=== PATIENT | female | born 1955 | race Hispanic/Latino ===

== ENCOUNTER 2018-06-28 16:10 | Emergency (ER) | payer BC, SELFPAY ==
[2018-06-28 17:08] LABS: #Basophils 0.1 thou/uL (0.0-0.2); #Eosinphils 0.2 thou/uL (0.0-0.7); #Lymphocytes 2.8 thou/uL (1.20-3.40); #Monocytes 0.5 thou/uL (0.11-0.59); #Neutrophils 4.5 thou/uL (1.40-6.50); %Eosinophils 2.8 % (0.0-10.0); %Lymphocytes 34.7 % (21.0-51.0); %Monocytes 6.7 % (0.0-10.0); %Neutrophils 54.9 % (42.0-75.0); Hemoglobin 13.6 g/dL (12.0-16.0); Mean Corpuscular Hemoglobin 30.5 pg (27.0-31.0); Mean Corpuscular Volume 92.6 fL (78.0-98.0); Mean Platelet Volume 7.3 fL (7.4-10.4); Platelet Count 260 thou/uL (130-400); RBC Distribution Width 13.1 % (11.5-14.5); Red Blood Cell (RBC) Count 4.45 mill/uL (4.20-5.40); White Blood Cell (WBC) Count 8.1 thou/uL (4.8-10.8)
--- NOTE | 2018-06-28 17:08 | RAD ---
PA AND LATERAL CHEST: Date: 06/28/18 COMPARISON: 05/20/14 study. HISTORY: Cough. FINDINGS: Heart size is enlarged. No focal infiltrative process or signs of failure. Calcified mediastinal lymp h nodes are seen. IMPRESSION: Cardiomegaly. POS: [facility]
[2018-06-28 17:25] LABS: ALT (SGPT) 14 U/L (8-55); AST (SGOT) 16 U/L (5-34); Albumin 4.1 g/dL (3.4-4.8); Alkaline Phosphatase 176 U/L (40-150); Anion Gap 13 mmol/L (10-20); BUN (Urea Nitrogen) 18 mg/dL (9.8-20.1); Bilirubin, Total 0.4 mg/dL (0.2-1.2); Calc. Creatinine Clearance 0 mL/min (70-130); Carbon Dioxide 18 mmol/L (23-31); Chloride 111 mmol/L (98-107); Estimated GFR-MDRD 74; Globulin 3.2 g/dL (2.4-3.5); Glucose 147 mg/dL (80-115); Potassium 4.5 mmol/L (3.5-5.1); Protein, Total 7.3 g/dL (6.0-8.3); Sodium 137 mmol/L (136-145)
== END 2018-06-28 18:57 | disposition home or self-care (01) ==
LOC: ERS 16:10
DX: J39.9 Disease of upper respiratory tract, unspecified (principal); I25.10 Atherosclerotic heart disease of native coronary artery without angina pectoris; I11.0 Hypertensive heart disease with heart failure; I50.9 Heart failure, unspecified; F41.9 Anxiety disorder, unspecified; Z79.82 Long term (current) use of aspirin; Z79.899 Other long term (current) drug therapy
CPT/HCPCS: 36415; 71046; 80053; 83880; 84484; 85025; 93005

== ENCOUNTER 2019-05-12 16:36 | Emergency (ER) | payer SELFPAY ==
--- NOTE | 2019-05-12 17:28 | RAD ---
EXAM: Chest Two Views 05/12/2019 5:25 PM HISTORY: Cough and congestion COMPARISON: June 28, 2018 FINDINGS: Heart: Stable mild cardiomegaly Pulmonary vessels: Normal. Costophrenic angles: Clear. Lungs: No acute airspace consolidation. Pneumothorax: None. Osseous structures:Intact. Additional findings: Stable calcified lymph node within the left hilar region. IMPRESSION: No significant acute intrathoracic disease.
== END 2019-05-12 18:54 | disposition home or self-care (01) ==
LOC: ERS 16:36
DX: J18.9 Pneumonia, unspecified organism (principal); I11.0 Hypertensive heart disease with heart failure; I50.9 Heart failure, unspecified; I25.10 Atherosclerotic heart disease of native coronary artery without angina pectoris; F41.9 Anxiety disorder, unspecified; Z79.82 Long term (current) use of aspirin; Z79.899 Other long term (current) drug therapy
CPT/HCPCS: 71046; 87804

== ENCOUNTER 2019-05-19 17:05 | Observation (INO) | payer SELFPAY ==
--- NOTE | 2019-05-19 18:00 | RAD ---
RADIOGRAPH CHEST 1 VIEW: DATE: 05/19/2019 HISTORY: 64-year-old female with chest pain and dyspnea FINDINGS: The thoracic aorta is tortuous and ectatic. There is no evidence of airspace density, pulmonary edema , or pneumothorax. The lateral costophrenic angles are not effaced. Left ventricular configuration of the heart. No interval change since 05/12/2019. IMPRESSION: 1) No acute pulmonary findings. 2) ectasia of thoracic aorta.
[2019-05-19 18:03] LABS: #Eosinphils 0.1 thou/uL (0.0-0.7); #Lymphocytes 1.6 thou/uL (1.20-3.40); #Monocytes 0.5 thou/uL (0.11-0.59); #Neutrophils 7.2 thou/uL (1.40-6.50); %Basophils 0.3 % (0.0-1.0); %Eosinophils 1.5 % (0.0-10.0); %Lymphocytes 16.6 % (21.0-51.0); %Monocytes 4.8 % (0.0-10.0); %Neutrophils 76.8 % (42.0-75.0); Mean Corpuscular HGB CONC 32.2 g/dL (32.0-36.0); Mean Corpuscular Hemoglobin 29.4 pg (27.0-31.0); Mean Corpuscular Volume 91.4 fL (78.0-98.0); Platelet Count 257 thou/uL (130-400); RBC Distribution Width 12.8 % (11.5-14.5); Red Blood Cell (RBC) Count 4.77 mill/uL (4.20-5.40); White Blood Cell (WBC) Count 9.4 thou/uL (4.8-10.8)
--- NOTE | 2019-05-19 18:19 | ULT ---
ULTRASOUND DOPPLER DUPLEX VENOUS LEFT LOWER EXTREMITY: DATE: 05/19/2019 HISTORY: 64-year-old female with left lower extremity pain TECHNIQUE: Grayscale, color-flow, and spectral analysis, of major veins of left lower extremity. FINDINGS: There is demonstration of blood flow with normal compressibility, of the left common femoral, profund a femoral, greater saphenous, femoral, popliteal, and posterior tibial, veins. IMPRESSION: Negative. No deep venous thrombosis of left lower extremity.
[2019-05-19 18:25] LABS: ALT (SGPT) 12 U/L (8-55); AST (SGOT) 17 U/L (5-34); Alkaline Phosphatase 150 U/L (40-110); Anion Gap 15 mmol/L (10-20); BUN (Urea Nitrogen) 19 mg/dL (9.8-20.1); Bilirubin, Total 0.4 mg/dL (0.2-1.2); Calc. Creatinine Clearance 0 mL/min (70-130); Calcium 8.6 mg/dL (7.8-10.44); Carbon Dioxide 16 mmol/L (23-31); Chloride 111 mmol/L (98-107); Estimated GFR-MDRD 67; Globulin 3.5 g/dL (2.4-3.5); Glucose 125 mg/dL (80-115); Potassium 3.8 mmol/L (3.5-5.1); Protein, Total 7.5 g/dL (6.0-8.3); Sodium 138 mmol/L (136-145)
[2019-05-19] MEDS ORDERED: Ondansetron PF 4 MG/2 ML Vial ONE (18:45)
--- NOTE | 2019-05-19 19:42 | CT ---
CT ANGIOGRAM THORAX WITH CONTRAST: (CTA pulmonary angiogram) DATE: 05/19/2019 HISTORY: 64-year-old female with dyspnea, elevated d-dimer, and chest tightness. TECHNIQUE: IV injection of iodinated contrast. Scan acquisition timing attempted to coincide with iodinated contrast bolus reaching maximal density in pulmonary arteries. 3-D MIP reconstructions. FINDINGS: Pulmonary thromboembolism: None. Lungs: No consolidation or edema. Pneumothorax: None. Pleural effusion: None. Thoracic aorta: Tortuous. No dissection or aneurysm. heart: Mild Cardiomegaly. IMPRESSION: No pulmonary thromboembolism.
--- NOTE | 2019-05-19 20:39 | PDOC.HHP ---
Hospitalist HPI - History of Present Illness Shortness of breath History of Present Illness: Patient is a 64 year old female with PMH CHF, CAD, HTN who presents to ED with chest tightness, SOB, nausea, and pain L leg beginning this morning. L leg pain is posterior from gluteal region to kneedenies swelling in legs. Pain is still there a bit but is mostly resolved. Pt reports recent respiratory illness which is now resolved. Patient is on sertraline for a long time but has lost insurance and reports significant anxiety, this chest pain feels different than previous chest pain resulting in stent 2 years ago. She had stents x 2 placed 2 years ago. Has lost her PCP Dr Leal due to insurnace loss but feels like her sertraline is not controlling anxiety any more. ED Course: aspirin oral Sat May 19, 2019 17:15 FerrerVLAD mccoy Lacee TABLET : Strength - 81 mg : ORAL Patient Dose: 1 tab(s) Oral once a day. amLODIPine Sat May 19, 2019 17:15 VLAD Ferrer Lacee TABLET : Strength - 10 mg : ORAL Patient Dose: 1 tab(s) Oral once a day. atenolol Sat May 19, 2019 17:15 VLAD Ferrer Lacee TABLET : Strength - 25 mg : ORAL Patient Dose: 1 tab(s) Oral once a day. doxycycline hyclate oral Sat May 19, 2019 17:15 VLAD Ferrer Lacee capsule : Strength - 100 mg : ORAL Patient Dose: 100 mg Oral every 12 hours.3 pills left as of 05/19/19 for PNA. busPIRone Sat May 19, 2019 17:18 VLAD Ferrer Lacee TABLET : Strength - 10 mg : ORAL Patient Dose: 15 mg Oral 2 times a day. carvedilol Sat May 19, 2019 17:18 VLAD Ferrer Lacee TABLET : Strength - 12.5 mg : ORAL Patient Dose: 1 tab(s) Oral 2 times a day. furosemide oral Sat May 19, 2019 17:18 VLAD Ferrer Lacee TABLET : Strength - 40 mg : ORAL Patient Dose: 1 tab(s) Oral 2 times a day. hydrALAZINE oral Sat May 19, 2019 17:18 FerrerVLAD mccoy Lacee TABLET : Strength - 25 mg : ORAL Patient Dose: 1 tab(s) Oral 2 times a day. sertraline Sat May 19, 2019 17:18 VLAD Ferrer Lacee TABLET : Strength - 50 mg : ORAL Patient Dose: 2 tab(s) Oral once a day. spironolactone Sat May 19, 2019 17:18 VLAD Ferrer Lacee TABLET : Strength - 25 mg : ORAL Patient Dose: 2 tab(s) Oral once a day. atorvastatin Sat May 19, 2019 17:19 VLAD Ferrer Lacee tablet : Strength - 20 mg : ORAL Patient Dose: 1 tab(s) Oral once a day (in the evening). VITAL SIGNS Sat May 19, 2019 17:06 VLAD Britt, Ara BP: 135/70 Pulse: 77 Resp: 24 Temp: 98.1 (Oral) Pain: 8 O2 sat: 95 on (Room Air) Time: 05/19/2019 17:06. VITAL SIGNS Sat May 19, 2019 18:24 VLAD Kunz, [facility] BP: 126/74 Pulse: 67 Resp: 16 Pain: 2 O2 sat: 96 on (Room Air) Time: 05/19/2019 18:24. Hospitalist ROS - Review of Systems Constitutional: denies: fever, chills, sweats, weakness, malaise, other Eyes: denies: pain, vision change, conjunctivae inflammation, eyelid inflammation, redness, other ENT: denies: ear pain, ear discharge, nose pain, nose discharge, nose congestion , mouth pain, mouth swelling, throat pain, throat swelling, other Respiratory: reports: shortness of breath. denies: cough, dry, hemoptysis, SOB with excertion, pleuritic pain, sputum, wheezing, other Cardiovascular: reports: chest pain. denies: palpitations, orthopnea, paroxysmal noc. dyspnea, edema, light headedness, other Gastrointestinal: denies: nausea, vomiting, abdominal pain, diarrhea, constipation, melena, hematochezia, other Genitourinary: denies: dysuria, frequency, incontinence, hematuria, retention, other Musculoskeletal: reports: leg pain (L sided). denies: neck pain, shoulder pain , arm pain, back pain, hand pain, foot pain, other Skin: denies: rash, lesions, susana, bruising, other Neurological: denies: weakness, numbness, incoordination, change in speech, confusion, seizures, other All other systems reviewed; all pertinent +/- noted in HPI/Subj Hospitalist History - Past Medical History Other Medical History: Past medical history includes cardiac history, coronary artery disease, congestive heart failure, Flu vaccine not up to date, Tetanus not up to date, Pneumococcal vaccine not up to date, Past medical history includes history of hypertension, which has been treated, Patient is compliant,. 05/19/19. - Past Surgical History Other Surgical History: Surgical history of section, Date of surgery 1992, Surgical history of hysterectomy. stent in 2016.05/19/19. - Family History Family History: reports: no pertinent history - Social History Other Social History: Patient drinks socially, Patient denies drug use, Patient has no smoking history. 05/19/19. - Exam General Appearance: NAD, awake alert Eye: PERRL, anicteric sclera ENT: normocephalic atraumatic, no oropharyngeal lesions, moist mucosa Neck: supple, symmetric, no JVD, no thyromegaly, no lymphadenopathy, no carotid bruit Heart: RRR, no murmur, no gallops, no rubs, normal peripheral pulses Respiratory: CTAB, no wheezes, no rales, no ronchi, normal chest expansion, no tachypnea, normal percussion Gastrointestinal: soft, non-tender, non-distended, normal bowel sounds, no palpable masses, no hepatomegaly, no splenomegaly, no bruit Extremities: no cyanosis, no clubbing, no edema Skin: normal turgor, no lesions, no rashes Neurological: cranial nerve grossly intact, normal sensation to touch, no weakness, no focal deficits, no new deficit Musculoskeletal: normal tone, normal strength, no muscle wasting Psychiatric: normal affect, normal behavior, A&O x 3 Hospitalist Results - Labs Result Diagrams: 05/19/19 17:52 05/19/19 17:52 Lab results: WBC 9.4 thou/uL (4.8-10.8) 05/19/19 17:52 Hgb 14.0 g/dL (12.0-16.0) 05/19/19 17:52 Hct 43.6 % (36.0-47.0) 05/19/19 17:52 MCV 91.4 fL (78.0-98.0) 05/19/19 17:52 Plt Count 257 thou/uL (130-400) 05/19/19 17:52 Neutrophils % 76.8 % (42.0-75.0) H 05/19/19 17:52 Sodium 138 mmol/L (136-145) 05/19/19 17:52 Potassium 3.8 mmol/L (3.5-5.1) 05/19/19 17:52 Chloride 111 mmol/L (98-107) H 05/19/19 17:52 Carbon Dioxide 16 mmol/L (23-31) L 05/19/19 17:52 BUN 19 mg/dL (9.8-20.1) 05/19/19 17:52 Creatinine 0.85 mg/dL (0.6-1.1) 05/19/19 17:52 Glucose 125 mg/dL (80-115) H 05/19/19 17:52 Calcium 8.6 mg/dL (7.8-10.44) 05/19/19 17:52 Total Bilirubin 0.4 mg/dL (0.2-1.2) 05/19/19 17:52 AST 17 U/L (5-34) 05/19/19 17:52 ALT 12 U/L (8-55) 05/19/19 17:52 Alkaline Phosphatase 150 U/L (40-110) H 05/19/19 17:52 Troponin I Less than 0.010 ng/mL (< 0.028) 05/19/19 17:52 Serum Total Protein 7.5 g/dL (6.0-8.3) 05/19/19 17:52 Albumin 4.0 g/dL (3.4-4.8) 05/19/19 17:52 Additional comment: XR Chest 1 View Portable Observe DT: Sat May 19, 2019 17:31 CXRP RADIOGRAPH CHEST 1 VIEW: DATE: 05/19/2019 HISTORY: 64-year-old female with chest pain and dyspnea FINDINGS: The thoracic aorta is tortuous and ectatic. There is no evidence of airspace density, pulmonary edema , or pneumothorax. The lateral costophrenic angles are not effaced. Left ventricular configuration of the heart. No interval change since 05/12/2019. IMPRESSION: 1) No acute pulmonary findings. 2) ectasia of thoracic aorta. CTA Angio Chest W WO Con Observe DT: Sat May 19, 2019 18:[address] ANGIOGRAM THORAX WITH CONTRAST: (CTA pulmonary angiogram) DATE: 05/19/2019 HISTORY: 64-year-old female with dyspnea, elevated d-dimer, and chest tightness. TECHNIQUE: IV injection of iodinated contrast. Scan acquisition timing attempted to coincide with iodinated contrast bolus reaching maximal density in pulmonary arteries. 3-D MIP reconstructions. FINDINGS: Pulmonary thromboembolism: None. Lungs: No consolidation or edema. Pneumothorax: None. Pleural effusion: None. Thoracic aorta: Tortuous. No dissection or aneurysm. heart: Mild Cardiomegaly. IMPRESSION: No pulmonary thromboembolism. - EKG Interpretation EKG: NSR 69 bpm, nonspecific T wave changes Hospitalist H&P A/P - Plan Plan: Patient is a 64 year old female with PMH CHF, CAD, HTN who presents to ED with chest tightness, SOB, nausea, and pain L leg beginning this morning. # chest pain - SOB, nausea, different than previous heart pain which resulted in cath and stents, significant anxiety concerning for panic or SAMMIE but need to rule out OH due to significant cardiac history - admit to telemetry - trend enzymes - stress test in AM - CTA and CXR in ED reviewed, no PE or other acute findings, DVT duplex negative for DVT, EKG NSR with nonspecific T wave changes - anxiety may be a significant part of all of this, continue sertraline, add PRN ativan, consult case management for mental health referral # CHF - continue home meds, rule out OH as above, no edema or effusion and appears euvolemic # HTN - PRNs in place, monitor BPs
[2019-05-19] MEDS ORDERED: Aspirin Chewable 81 MG TAB ONE ×2 (21:09)
[2019-05-19 21:55] VITALS: BMI 41.8
[2019-05-19] MEDS ORDERED: Bisacodyl 5 MG TAB PO PRN (21:57)
[2019-05-19] MEDS ORDERED: HYDROcodone/Acetaminophen 5/325 mg Tablet PO PRN (21:57)
[2019-05-19] MEDS ORDERED: Bisacodyl 10 MG SUPP PR PRN (21:57)
[2019-05-19] MEDS ORDERED: Acetaminophen 325 MG TAB PO PRN (21:57)
[2019-05-19] MEDS ORDERED: Ondansetron PF 4 MG/2 ML Vial IVP PRN (21:59)
[2019-05-19] MEDS ORDERED: cloNIDine 0.1 MG TAB PO PRN (21:59)
[2019-05-19] MEDS ORDERED: hydrALAZINE 20 MG/ML VIAL SLOW IVP PRN (21:59)
[2019-05-19] MEDS ORDERED: Promethazine HCl 12.5 MG in Sodium Chloride 0.9% 50 ML IVPB PRN (21:59)
[2019-05-19] MEDS ORDERED: Morphine 2 MG/ML SYRINGE SLOW IVP PRN (21:59)
[2019-05-19] MEDS ORDERED: Lorazepam 1 MG TAB PO PRN (21:59)
[2019-05-20] MEDS ORDERED: Temazepam 15 MG CAP PO PRN (00:50)
[2019-05-20 06:13] LABS: Troponin I 0.022 ng/mL (< 0.028)
[2019-05-20 06:46] LABS: Anion Gap 15 mmol/L (10-20); BUN (Urea Nitrogen) 20 mg/dL (9.8-20.1); Calc. Creatinine Clearance 101 mL/min (70-130); Calcium 8.5 mg/dL (7.8-10.44); Carbon Dioxide 19 mmol/L (23-31); Chloride 108 mmol/L (98-107); Estimated GFR-MDRD 69; Glucose 119 mg/dL (80-115); Magnesium 1.7 mg/dL (1.6-2.6); Potassium 3.4 mmol/L (3.5-5.1); Sodium 139 mmol/L (136-145)
[2019-05-20] MEDS ORDERED: Potassium Chloride 20 MEQ TAB PO SCH (07:15)
[2019-05-20] MEDS: Furosemide 40 MG TAB PO SCH ×2 (08:56→10:55)
[2019-05-20] MEDS ORDERED: Amlodipine 10 MG TAB PO SCH (09:00)
[2019-05-20] MEDS ORDERED: Polyethylene Glycol 3350 17 GM Packet PO SCH (09:00)
[2019-05-20] MEDS ORDERED: Aspirin 81 mg Enteric Coated Tablet PO SCH (09:00)
[2019-05-20] MEDS ORDERED: Enoxaparin Sodium 40 MG/0.4 ML SYRINGE SC SCH (09:00)
[2019-05-20] MEDS ORDERED: Carvedilol 6.25 MG TAB PO SCH (09:00)
[2019-05-20] MEDS ORDERED: hydrALAZINE 25 MG TAB PO SCH (09:00)
[2019-05-20] MEDS ORDERED: busPIRone HCl 10 MG TAB PO SCH (09:00)
[2019-05-20] MEDS ORDERED: FLU VACC QS2019-20(6MOS UP)/PF 60 MCG/0.5 ML SYRINGE IM ONE (09:00)
[2019-05-20] MEDS ORDERED: Spironolactone 25 MG TAB PO SCH (09:00)
[2019-05-20] MEDS ORDERED: Regadenoson 0.4 MG/5 ML SYRINGE ONE (09:52)
[2019-05-20 11:24] LABS: #Basophils 0.1 thou/uL (0.0-0.2); #Eosinphils 0.3 thou/uL (0.0-0.7); #Lymphocytes 2.1 thou/uL (1.20-3.40); #Monocytes 0.5 thou/uL (0.11-0.59); #Neutrophils 6.1 thou/uL (1.40-6.50); %Basophils 0.6 % (0.0-1.0); %Eosinophils 2.9 % (0.0-10.0); %Lymphocytes 23.3 % (21.0-51.0); %Monocytes 5.3 % (0.0-10.0); %Neutrophils 67.9 % (42.0-75.0); Hemoglobin 14.1 g/dL (12.0-16.0); Mean Corpuscular HGB CONC 33.1 g/dL (32.0-36.0); Mean Corpuscular Volume 90.8 fL (78.0-98.0); Mean Platelet Volume 7.7 fL (7.4-10.4); Platelet Count 253 thou/uL (130-400); RBC Distribution Width 12.7 % (11.5-14.5)
[2019-05-20 11:25] VITALS: BP 147/67; TEMP 98.1
--- NOTE | 2019-05-20 11:47 | NM ---
Stress only nuclear medicine myocardial perfusion scan: 05/20/2019 HISTORY: Shortness of breath and headache TECHNIQUE: SPECT imaging of the left ventricular myocardium obtained during stress following the intr avenous administration of 28.4 mCi technetium 99m labeled sestamibi FINDINGS: No focal defect noted on SPECT imaging of the left ventricular myocardium. Left ventricular wall motion appears normal. End-diastolic volume is 103 cc and end-systolic volume is 34 cc. Left ventricular ejection fraction is 67%. IMPRESSION: Unremarkable stress only myocardial perfusion scan.
[2019-05-20] MEDS ORDERED: Atorvastatin Calcium 20 MG TAB PO SCH (21:00)
--- NOTE | 2019-05-22 14:27 | DIS ---
DATE OF ADMISSION: 05/19/2019 DATE OF DISCHARGE: 05/20/2019 DISCHARGE DISPOSITION: Home. FOLLOWUP: 1. [facility]up [facility] 1 week. 2. Repeat basic metabolic profile after 1 week is recommended. Primary care physician advised to follow. DISCHARGE MEDICATIONS: Same as admission medications. The patient was seen and examined on the day of discharge. Denies any new complaints. No chest pain, shortness of breath palpitations. DISCHARGE PHYSICAL EXAMINATION: VITAL SIGNS: Showed temperature 98.1, pulse rate of 69, respirations of 18, blood pressure of 147/67 with O2 saturation 96% on room air. BRIEF HOSPITAL COURSE: The patient is a 64-year-old female with coronary artery disease, status post stent placement; hypertension; chronic diastolic heart failure; presented to the emergency room with chest discomfort along with shortness of breath. Please refer to the history and physical dated [address] Rock for further details. The patient was admitted to the telemetry unit with a diagnosis of chest discomfort, rule out acute coronary syndrome. Serial troponins remained negative. She underwent a Cardiolite stress test that was negative for reversible ischemia. Ejection fraction was 67%. There was no wall motion abnormality. The chest discomfort and shortness of breath have significantly improved. SIGNIFICANT LABS: 1. BNP 85.4. 2. Hemoglobin 14. 3. CT angiogram of the chest was negative for pulmonary embolism. 4. Left lower extremity Doppler was negative for DVT. FINAL DIAGNOSES: 1. Chest discomfort along with shortness of breath, acute coronary syndrome ruled out. 2. No reversible ischemia on the stress test. 3. Coronary artery disease, status post stent placement. 4. Hypertension. 5. Chronic diastolic heart failure compensated. 6. Hypertension. 7. Hypokalemia. 8. Chronic kidney disease, stage 2. 9. Penicillin allergy. 10. Morbid obesity with a body mass index of 41.8. 11. The patient understands the above plan of care. Job ID: [id number]
--- NOTE | 2019-05-24 08:50 | STRESS ---
Acquisition Time: 2019-05-20 08:46:21 Total Exercise Time: 00:01:00 Test Indications: CHEST PAIN Medications: Protocol: LEXISCAN Max HR: 083 BPM 53% of Pred: 156 BPM Max BP: 128/080 mmHG Max Work Load: 1.0 METS RESTING ECG: NORMAL SINUS RHYTHM AT [address]PM [address] NON-SPECIFIC ST SEGMENT AND T WAVE CHANGES SYMPTOMS: SOB, HEADACHE APPROPRIATE BP RESPONSE FOR LEXISCAN ECTOPY: NONE ECG STRESS: NO SIGNIFICANT CHANGES INTERPRETATION: NEGATIVE/AWAIT NUCLEAR IMAGES FOR DEFINITIVE DIAGNOSIS Confirmed by ELIAN LOPEZ ([id number]), editor trade journal ERIKA FERREIRA ([id number]) on 05/24/2019 8:50:01 AM Referred By: Dano GAUTAM Confirmed By:ELIAN LOPEZ
== END 2019-05-20 15:38 | disposition home or self-care (01) ==
LOC: ERS 17:05 → 2SW 20:26
PROVIDERS: ADMIT Internal Medicine; ATTEND Internal Medicine
DX: R07.89 Other chest pain (principal); R06.02 Shortness of breath; M79.605 Pain in left leg; I25.10 Atherosclerotic heart disease of native coronary artery without angina pectoris; I13.0 Hypertensive heart and chronic kidney disease with heart failure and stage 1 through stage 4 chronic kidney disease, or unspecified chronic kidney disease; N18.2 Chronic kidney disease, stage 2 (mild); I50.32 Chronic diastolic (congestive) heart failure; F41.9 Anxiety disorder, unspecified; E87.6 Hypokalemia; M19.90 Unspecified osteoarthritis, unspecified site; E66.01 Morbid (severe) obesity due to excess calories; Z68.41 Body mass index [BMI] 40.0-44.9, adult; Z79.82 Long term (current) use of aspirin; Z79.899 Other long term (current) drug therapy; Z88.0 Allergy status to penicillin; Z95.5 Presence of coronary angioplasty implant and graft
CPT/HCPCS: 36415; 71045; 71275; 78452; 80048; 80053; 83735; 83880; 84484; 85025; 85379; 93005; 93017; 96374; A9500; G0378; J2405; J2785

== ENCOUNTER 2019-10-22 20:18 | Emergency (ER) | payer SELFPAY ==
--- NOTE | 2019-10-23 08:29 | RAD ---
RIGHT WRIST 3 VIEWS: HISTORY: Fall with wrist injury. FINDINGS: The bones are demineralized. I do not appreciate any signs of fracture. If the patient's pain persi sts, particularly if there is pain in the region of the scaphoid, followup in 7-10 days would be marky mmended to evaluate for occult injury. IMPRESSION: Generalized bone demineralization and arthritic change of the wrist. No fracture. POS: [facility]
--- NOTE | 2019-10-23 08:30 | RAD ---
RIGHT HAND 3 VIEWS: HISTORY: Hand pain status post fall. FINDINGS: Bones are demineralized. There are arthritic changes of the hand and wrist. There are no signs of f racture or dislocation. IMPRESSION: No evidence of fracture. POS: [facility]
--- NOTE | 2019-10-23 08:31 | RAD ---
RIGHT KNEE 4 VIEWS: HISTORY: Fall with knee injury. FINDINGS: There are severe arthritic changes of the knee. Marked medial compartment narrowing. There is also patellofemoral degenerative spurring and lateral compartment changes. No effusion or fracture. IMPRESSION: Severe arthritic changes of the knee. POS: [facility]
--- NOTE | 2019-10-23 08:31 | RAD ---
LEFT HIP 2 VIEWS: HISTORY: Fall with hip pain. FINDINGS: There are no signs of fracture or dislocation. IMPRESSION: No acute injury. POS: [facility]
--- NOTE | 2019-10-23 08:32 | RAD ---
LEFT KNEE 4 VIEWS: HISTORY: Fall with knee pain. FINDINGS: Marked arthritic changes of the knee are noted. Pronounced medial compartment narrowing and also pat ellofemoral and lateral compartment degenerative change. IMPRESSION: No acute injury. Marked arthritic changes of the knee. POS: [facility]
== END 2019-10-22 22:20 | disposition home or self-care (01) ==
LOC: ERS 20:18
DX: S60.211A Contusion of right wrist, initial encounter (principal); S80.02XA Contusion of left knee, initial encounter; S80.01XA Contusion of right knee, initial encounter; S70.02XA Contusion of left hip, initial encounter; I25.10 Atherosclerotic heart disease of native coronary artery without angina pectoris; I11.0 Hypertensive heart disease with heart failure; I50.9 Heart failure, unspecified; F41.9 Anxiety disorder, unspecified; Z79.82 Long term (current) use of aspirin; Z79.899 Other long term (current) drug therapy; W19.XXXA Unspecified fall, initial encounter